=== PATIENT | male | born 1960 | race Caucasian/White ===

== ENCOUNTER 2019-01-06 18:14 | Emergency (ER) | payer BC ==
[2019-01-06] MEDS ORDERED: Lidocaine 1% 10 ML MDV INJECT ONE (18:46)
[2019-01-06] MEDS ORDERED: Bupivacaine 0.5% 10 ML SDV INJECT ONE (18:47)
[2019-01-06] MEDS ORDERED: Diphtheria,Pertussis(Acell),Tetanus Vaccine 0.5 ML Syringe IM ONE (18:47)
--- NOTE | 2019-01-06 19:06 | EDM.PDOC ---
ED HPI GENERAL MEDICAL PROBLEM - General Chief Complaint: Laceration Stated Complaint: L THIGH LAC Time Seen by Provider: 01/06/19 18:25 Source of Information: Reports: Patient History Limitations: Reports: No Limitations - History of Present Illness INITIAL COMMENTS - FREE TEXT/NARRATIVE: 58 year old male presents for evaluation and treatment of a laceration to the left thigh. Patient reports he was using a sheet rock knife to cut a hose when the knife slipped and he cut his left thigh. Patient reports bleeding is controlled upon arrival to the ER. No numbness or tingling to the leg. Full ROM , no problems with ambulation. Does not recall last tetanus. Patient denies any history of diabetes. No history of MRSA. - Related Data Allergies Allergy/AdvReac Type Severity Reaction Status Date / Time No Known Allergies Allergy Verified 01/06/19 18:39 Home Meds: Home Meds Rosuvastatin Calcium 10 mg PO DAILY 01/06/19 [History] hydroCHLOROthiazide [Hydrochlorothiazide] 25 mg PO DAILY 01/06/19 [History] Past Medical History Cardiovascular History: Reports: High Cholesterol, Hypertension Social & Family History - Tobacco Use Smoking Status *Q: Never Smoker Second Hand Smoke Exposure: No - Caffeine Use Caffeine Use: Reports: Coffee - Recreational Drug Use Recreational Drug Use: No ED ROS GENERAL - Review of Systems Review Of Systems: See Below Skin: Reports: Wound (left anterior proximal thigh) Neurological: Denies: Numbness, Tingling, Difficulty Walking ED EXAM, SKIN/RASH Exam: See Below Exam Limited By: No Limitations General Appearance: Alert, WD/WN, No Apparent Distress Respiratory/Chest: No Respiratory Distress Extremities: Normal Inspection, Other (8cm laceration to the left anterior proximal thigh) Neurological: Alert, Oriented, Normal Cognition Psychiatric: Normal Affect, Normal Mood Skin: Warm, Dry, Normal Color, Wound/Incision (8cm laceration to the left anterior proximal thigh) Location, Skin: Lower Extremity, Left Characteristics: Linear ED SKIN PROCEDURES - Laceration/Wound Repair Left Anterior Proximal Thigh Lac/Wound length In cm: 8 Appearance: Subcutaneous, Linear Distal NVT: Neuro & Vascular Intact, No Tendon Injury Anesthetic Type: Local Local Anesthesia - Lidocaine (Xylocaine): 1% Plain Local Anesthesia - Bupivicaine (Marcaine): 0.5% Plain Local Anesthetic Volume: 4cc Skin Prep: Saline, Sterile Drape Closed with: Sutures, Dermabond Suture Size: 4-0 # of Sutures: 11 Sterile Dressing Applied: Nurse Tetanus Status Addressed: Yes Complications: No Course - Vital Signs Last Recorded V/S: Last Vital Signs Temp 98.4 F 01/06/19 18:38 Pulse 94 01/06/19 18:38 Resp 16 01/06/19 18:38 BP 173/97 H 01/06/19 18:38 Pulse Ox 94 L 01/06/19 18:38 - Orders/Labs/Meds Orders: Active Orders 24 hr Category Date Time Status Vaccines to be Administered [RC] PER UNIT ROUTINE Care 01/06/19 18:47 Active Meds: Medications Discontinued Medications Generic Name Dose Route Start Last Admin Trade Name Conor PRN Reason Stop Dose Admin Bupivacaine HCl 10 ml 01/06/19 18:47 01/06/19 19:42 Sensorcaine-Mpf 0.5% INJECT 01/06/19 18:48 10 ml ONETIME ONE Administration Diphtheria/Tetanus/Acell Pertussis 0.5 ml 01/06/19 18:47 01/06/19 19:41 Adacel IM 01/06/19 18:48 0.5 ml .ONCE ONE Administration Lidocaine HCl 10 ml 01/06/19 18:46 01/06/19 19:42 Xylocaine 1% INJECT 01/06/19 18:47 10 ml ONETIME ONE Administration - Re-Assessments/Exams Free Text/Narrative Re-Assessment/Exam: 01/06/19 19:30 11 sutures applied to the wound. Dermabond applied to the superficial lateral end. Patient tolerated well. Tetanus up dated. Discharge instructions as documented. Departure - Departure Time of Disposition: 19:43 Disposition: Home, Self-Care 01 Condition: Good Clinical Impression: Laceration - Discharge Information *PRESCRIPTION DRUG MONITORING PROGRAM REVIEWED*: No *COPY OF PRESCRIPTION DRUG MONITORING REPORT IN PATIENT DEMETRIA: No Instructions: Laceration Care, Adult Referrals: Danay Hill DIRECTOR OF RECRUITMENT [Primary Care Provider] - Forms: ED Department Discharge Additional Instructions: Wash the wound with gentle soap and water twice a day. Keep the wound covered in situations where it may become dirty or contaminated. Otherwise leave open to air. May apply bacitracin or neosporin to the wound twice a day x 3 days. Your tetanus was updated today. This is good for the next 10 years. Have the sutures removed in about 10 days. you may return to the ER or you may go to the [facility]. Monitor for signs of infection such as increased swelling, pus or redness. Present to clinic or the ER should these develop. Please return the ER should your symptoms change or worsen. - My Orders Last 24 Hours: My Active Orders 01/06/19 18:47 Vaccines to be Administered [RC] PER UNIT ROUTINE - Assessment/Plan Last 24 Hours: My Active Orders 01/06/19 18:47 Vaccines to be Administered [RC] PER UNIT ROUTINE
== END 2019-01-06 19:55 | disposition home or self-care (01) ==
LOC: JD.ED 18:14
DX: S71.112A Laceration without foreign body, left thigh, initial encounter (principal); Z23 Encounter for immunization; I10 Essential (primary) hypertension; Z79.899 Other long term (current) drug therapy; W26.0XXA Contact with knife, initial encounter
CPT/HCPCS: 12004; 90471; 90700; 99282; J2001; J3490